=== PATIENT | female | born 1980 | race African-American/Black ===

== ENCOUNTER 2018-10-29 22:30 | Emergency (ER) | payer OTHER ==
[2018-10-29 22:36] VITALS: BMI 30.1
[2018-10-29] MEDS ORDERED: KETOROLAC TROMETHAMINE 60 MG/2 ML VIAL IM ONE (23:49)
--- NOTE | 2018-10-29 23:49 | PDOC ---
History of Present Illness - General Chief Complaint: Injury Stated Complaint: FALL/LEFT ARM Time Seen by Provider: 10/29/18 23:45 History Source: Patient - History of Present Illness Occurred: reports: this evening Upper Extremity Pain Location: left: other (LUE) Method of Injury: reports: fell Past History - Past Medical History Allergies/Adverse Reactions: Allergies Allergy/AdvReac Type Severity Reaction Status Date / Time No Known Allergies Allergy Verified 10/29/18 22:35 Home Medications: Ambulatory Orders Doxycycline Monohydrate [Adoxa] 100 mg PO BID #1 tab 08/08/11 Ibuprofen [Motrin] 800 mg PO Q8H PRN #1 tablet 08/08/11 Methylergonovine Maleate [Methergine] 0.2 mg PO TID #9 tablet 08/08/11 Capsule PO DAILY 08/08/11 Capsule PO DAILY #1 08/08/11 Anemia: Yes Asthma: No Cancer: No Cardiac Disorders: No CVA: No COPD: No CHF: No Dementia: No Diabetes: No GI Disorders: No Disorders: No HTN: No Hypercholesterolemia: No Liver Disease: No Seizures: No Thyroid Disease: No - Surgical History Abdominal Surgery: No Appendectomy: No Cardiac Surgery: No Cholecystectomy: No Lung Surgery: No Neurologic Surgery: No Orthopedic Surgery: No - Reproductive History Cervical CA: No Dysfunctional Uterine Bleeding: No Ectopic : No Endometrial CA: No Polycystic Ovaries: No - Suicide/Smoking/Psychosocial Hx Smoking Status: Yes Smoking History: Current every day smoker Number of Cigarettes Smoked Daily: 2 Information on smoking cessation initiated: No Hx Alcohol Use: No Review of Systems - Review of Systems Musculoskeletal: Yes: Joint Pain. No: Joint Swelling Neurological: No: Headache, Dizziness *Physical Exam - Vital Signs Last Vital Signs Temp Pulse Resp BP Pulse Ox 84 18 120/75 10/29/18 22:35 10/29/18 22:35 10/29/18 22:35 - Physical Exam General Appearance: Yes: Appropriately Dressed, Mild Distress HEENT: positive: Normal Voice Neck: positive: Supple. negative: Tender Respiratory/Chest: negative: Respiratory Distress Extremity: positive: Normal Inspection, Normal Range of Motion, Tender, Other ( diffuse ttp to L shoulder/arm/elbow/forearm, no joint swelling/deformity, wrist/ hand uninvolved, NVI). negative: Swelling Integumentary: positive: Dry, Warm Neurologic: positive: Fully Oriented, Alert, Normal Mood/Affect Medical Decision Making - Medical Decision Making 10/30/18 00:21 38-year-old female, no significant history here with left upper extremity pain after fall. Patient states while riding a hoverboard tonight, she fell off landing mostly on her L side. Denies any other injuries and did not hit head. See exam Suspect LUE sprain XR f/o fx -sling -pain control 10/30/18 00:52 XR showed no fracture. Sling given. Dc w/ OTC pain meds prn. Ortho f/u as needed *DC/Admit/Observation/Transfer Diagnosis at time of Disposition: Elbow sprain Qualifiers: Encounter type: initial encounter Laterality: left Qualified Code(s): S53.402A - Unspecified sprain of left elbow, initial encounter - Discharge Dispostion Disposition: HOME Condition at time of disposition: Good - Referrals - Patient Instructions Printed Discharge Instructions: DI for Elbow Sprain Additional Instructions: Your xray shows no broken bones. You most likely sustained a elbow sprain. Use sling for comfort and take Motrin or Tylenol [id number] for pain as needed. If pain persists. Please follow-up with Dr. Adams from orthopedics - Post Discharge Activity
[2018-10-29] MEDS ORDERED: KETOROLAC TROMETHAMINE 60 MG/2 ML VIAL ONE (23:55)
[2018-10-30 01:24] VITALS: BP 116/81; PULSE 80
== END 2018-10-30 01:25 | disposition home or self-care (01) ==
LOC: JER 22:30
PROC: 3E0233Z Introduction of Anti-inflammatory into Muscle, Percutaneous Approach (ICD-10-PCS; principal; 2018-10-29)
DX: S53.402A Unspecified sprain of left elbow, initial encounter (principal); W17.89XA Other fall from one level to another, initial encounter; Y93.I9 Activity, other involving external motion; Y92.89 Other specified places as the place of occurrence of the external cause; Y99.8 Other external cause status
CPT/HCPCS: 73030-TC-LT-FY; 73070-TC-LT-FY; 73090-TC-LT-FY; 96372; 99281-25